=== PATIENT | male | born 1990 | race Caucasian/White ===

== ENCOUNTER 2019-04-09 02:19 | Emergency (ER) | payer MEDICAID ==
[2019-04-09] MEDS ORDERED: Lactated Ringers 1,000 ML IV ONE (03:12)
[2019-04-09] MEDS ORDERED: LORazepam 2 MG/ML SDV IVPUSH ONE (03:13)
[2019-04-09] MEDS ORDERED: oxyCODONE 5 MG Tab PO ONE (04:13)
--- NOTE | 2019-04-09 05:06 | EDM.PDOC ---
ED HPI GENERAL MEDICAL PROBLEM - General Chief Complaint: ENT Problem Stated Complaint: BLOODY NOSE Time Seen by Provider: 04/09/19 02:50 Source of Information: Reports: Patient History Limitations: Reports: No Limitations - History of Present Illness INITIAL COMMENTS - FREE TEXT/NARRATIVE: 28 yo presents with concerns of epistaxis. Recently had surgery at [facility] to correct an "overbite" Reports that his hard palate and sinus were broken for this procedure - has had it once before. He was sitting in a chair tonight and spontaneously developed epistaxis. He reports he had the same problem after his first procedure, was instructed by his surgeon to have rhinorockets placed. No blood thinners. Head Pain Score (Numeric/FACES): 7 - Related Data Allergies Allergy/AdvReac Type Severity Reaction Status Date / Time amoxicillin Allergy Cannot Verified 07/18/18 00:02 Remember Home Meds: Home Meds Ibuprofen 100 mg PO Q6H PRN 04/09/19 [History] Sodium Chloride [Deep Sea] 44 ml NS DAILY 04/09/19 [History] buPROPion [Wellbutrin SR] 100 mg PO DAILY 04/09/19 [History] oxyCODONE HCl [Oxycodone HCl] 5 mg PO DAILY 04/09/19 [History] Past Medical History - Past Health History Medical/Surgical History: Denies Medical/Surgical History HEENT History: Reports: Epistaxis - Past Surgical History HEENT Surgical History: Reports: Oral Surgery Social & Family History - Tobacco Use Smoking Status *Q: Never Smoker - Caffeine Use Caffeine Use: Reports: Coffee, Soda - Alcohol Use Days Per Week of Alcohol Use: 1 Number of Drinks Per Day: 1 Total Drinks Per Week: 1 - Recreational Drug Use Recreational Drug Use: No - Living Situation & Occupation Living situation: Reports: , with Family Occupation: Employed ED ROS ENT - Review of Systems Review Of Systems: See Below Constitutional: Reports: No Symptoms HEENT: Reports: Nosebleed Respiratory: Reports: No Symptoms Cardiovascular: Reports: No Symptoms Endocrine: Reports: No Symptoms GI/Abdominal: Reports: No Symptoms : Reports: No Symptoms Musculoskeletal: Reports: No Symptoms Skin: Reports: No Symptoms Neurological: Reports: No Symptoms Psychiatric: Reports: No Symptoms Hematologic/Lymphatic: Reports: No Symptoms Immunologic: Reports: No Symptoms ED EXAM, ENT - Physical Exam Exam: See Below Exam Limited By: No Limitations General Appearance: Alert, Mild Distress Ears: Normal External Exam Nose: Other (vigourous epistaxsis from the left nares requiring continuous suction) Mouth/Throat: Normal Inspection Head: Normocephalic, Other (scattered echymosis lower jaw and face) Neck: Normal Inspection Respiratory/Chest: No Respiratory Distress, Lungs Clear Cardiovascular: Regular Rate, Rhythm GI/Abdominal: Normal Bowel Sounds, Soft Back: Normal Inspection Extremities: Normal Inspection Neurological: Alert, Oriented Psychiatric: Anxious Skin: Warm, Dry ED ENT PROCEDURES - Epistaxis Procedure Indication: Epistaxis, Uncontrolled Recent anticoagulants/antiplatlets: No Uncontrolled HTN: No Recent septal/nasal surgery: Yes Site of bleeding: Left Nare Clearing of clots: Suction Anterior Packing: Inflatable Nasal Tampon (unable to control hemorrhage with bilateral placement of tPA soaked inflatable nasal tampon.) Posterior packing: Long Inflatable Nasal Tampon Course - Vital Signs Last Recorded V/S: Last Vital Signs Temp 35.9 C 04/09/19 06:50 Pulse 125 H 04/09/19 06:56 Resp 18 04/09/19 06:56 BP 120/80 04/09/19 06:56 Pulse Ox 99 04/09/19 05:46 - Orders/Labs/Meds Orders: Active Orders 24 hr Category Date Time Status PATIENT RETYPE [BBK] Stat Lab 04/09/19 05:14 Results RED BLOOD CELLS LP [BBK] Stat Lab 04/09/19 05:14 Results TYPE AND SCREEN [BBK] Stat Lab 04/09/19 05:14 Results Blood Transfusion Reflex Set [OM.PC] Routine Oth 04/09/19 05:42 Ordered Transfuse Red Blood Cells [COMM] Stat Oth 04/09/19 05:42 Ordered Labs: Laboratory Tests 04/09/19 04/09/19 Range/Units 03:12 05:14 Hgb 12.6 (12.0-15.0) g/dL Blood Type O POSITIVE Gel Antibody Screen Negative Crossmatch See Detail Meds: Medications Discontinued Medications Generic Name Dose Route Start Last Admin Trade Name Freq PRN Reason Stop Dose Admin Lactated Ringer's 1,000 mls @ 999 mls/hr 04/09/19 03:12 04/09/19 03:28 Ringers, Lactated IV 04/09/19 04:12 999 mls/hr BOLUS ONE Administration Lorazepam 1 mg 04/09/19 03:13 04/09/19 03:28 Ativan IVPUSH 04/09/19 03:14 1 mg ONETIME ONE Administration Ondansetron HCl 4 mg 04/09/19 05:46 04/09/19 05:51 Zofran IVPUSH 04/09/19 05:47 4 mg ONETIME ONE Administration Oxycodone HCl 5 mg 04/09/19 04:13 04/09/19 04:23 Oxycodone PO 04/09/19 04:14 5 mg ONETIME ONE Administration Tranexamic Acid 500 mg 04/09/19 02:35 04/09/19 02:55 Cyklokapron TOP 04/09/19 02:36 500 mg ONETIME ONE Administration - Re-Assessments/Exams Free Text/Narrative Re-Assessment/Exam: 28 yo presents with epistaxis. Recently had maxillofacial surgery at [facility] (7 days post-op). Initially with very vigorous bleeding. Suctioned approximately 500 cc of blood. Seems to have some control after AP rhino rocket placement in the left nares. After this time became very anxious and concerned of his "PTSD" from prior nosebleeds. Was treated with 1 mg of IV and ativan. Over the ensuring 1-2 hours had recurrent epistaxis, unable to get control with placement of bilateral AP rhino rockets. Total 800-900cc of blood loss. Remains hemodynamically stable, protecting airway, but vigorous bleeding. His hgb shortly after arrival was 12.6. We have type and cross-matched the patient. Given our inability to control hemorrhage I am contacting his surgical team at [facility] to arrange transfer. 04/09/19 05:31 Free Text/Narrative Re-Assessment/Exam: Took some time for [facility] to arrange transfer, difficulty contacting correct physician. During this time had intermittent hypotension with tachycardia. Bolus of additional crystalloid liter then began pRBC transfusion. Responded to this. Continued to protect airway but required close monitoring. Given active hemorrhage had planned for air transport, however had to be aborted due to weather in [place]. Plan to go by ground directly to the ED where he will be evaluated for need for emergent surgical procedure. 04/09/19 07:48 Departure - Departure Time of Disposition: 07:00 Disposition: DC/Tfer to [facility] Clinical Impression: Epistaxis - Discharge Information Referrals: Yessy Crespo PA-C [Primary Care Provider] - Forms: ED Department Discharge Critical Care Note - Critical Care Note Comments: I directly provided 33 minutes of critical care time controlling life- threatening hemorrhage requiring blood transfusion, close airway monitoring. - My Orders Last 24 Hours: My Active Orders 04/09/19 05:14 PATIENT RETYPE [BBK] Stat RED BLOOD CELLS LP [BBK] Stat TYPE AND SCREEN [BBK] Stat 04/09/19 05:42 Blood Transfusion Reflex Set [OM.PC] Routine Transfuse Red Blood Cells [COMM] Stat - Assessment/Plan Last 24 Hours: My Active Orders 04/09/19 05:14 PATIENT RETYPE [BBK] Stat RED BLOOD CELLS LP [BBK] Stat TYPE AND SCREEN [BBK] Stat 04/09/19 05:42 Blood Transfusion Reflex Set [OM.PC] Routine Transfuse Red Blood Cells [COMM] Stat
[2019-04-09] MEDS ORDERED: Ondansetron 4 MG/2 ML SDV IVPUSH ONE (05:46)
== END 2019-04-09 07:32 ==
LOC: JP.ED 02:19
DX: R04.0 Epistaxis (principal); R58 Hemorrhage, not elsewhere classified; Z88.1 Allergy status to other antibiotic agents; Z79.899 Other long term (current) drug therapy; Z98.890 Other specified postprocedural states
CPT/HCPCS: 30903; 30905; 36415; 36430; 85018; 86850; 86900; 86901; 86920; 86922; 96361; 96374; 96375; 99284-25; A9270-GY; J2060; J2405; J7120; P9016

== ENCOUNTER 2022-11-14 09:52 | Emergency (ER) | payer BC, MEDICAID ==
[2022-11-14] MEDS ORDERED: Ondansetron 4 MG/2 ML SDV IVPUSH ONE ×2 (11:07→17:13)
[2022-11-14] MEDS ORDERED: Ketorolac 30 MG/ML SDV IVPUSH ONE (11:08)
[2022-11-14] MEDS ORDERED: Acetaminophen/oxyCODONE 325-5 MG Tab PO ONE (11:10)
[2022-11-14] MEDS ORDERED: Sodium Chloride 0.9% 1,000 ML IV SCH ×2 (11:15→14:00)
[2022-11-14 12:09] LABS: ESTIMATED GFR 68 mL/min (>60)
[2022-11-14] MEDS ORDERED: Prochlorperazine 10 MG/2 ML SDV IVPUSH ONE (13:00)
[2022-11-14] MEDS ORDERED: HYDROmorphone 0.5 MG/0.5 ML Syringe IVPUSH ONE (13:01)
== END 2022-11-14 17:25 | disposition home or self-care (01) ==
LOC: JP.ED 09:52
DX: M62.830 Muscle spasm of back (principal); B34.9 Viral infection, unspecified; E86.0 Dehydration; Z88.0 Allergy status to penicillin; Z87.891 Personal history of nicotine dependence
CPT/HCPCS: 36415; 80053; 81001; 85025; 96361; 96374; 96375; 99284; A9270; J0780; J1170; J1885; J7030; 99283